=== PATIENT | female | born 1990 | race Caucasian/White ===

== ENCOUNTER 2024-03-03 15:09 | Emergency (ER) | payer MEDICAID ==
[2024-03-03] MEDS ORDERED: Ketorolac Tromethamine 30 MG (1 mL) VIAL ONE (16:22)
== END 2024-03-03 16:27 | disposition home or self-care (01) ==
LOC: ERS 15:09
DX: M25.572 Pain in left ankle and joints of left foot (principal)
CPT/HCPCS: 96372; 99283; J1885